=== PATIENT | female | born 1970 | race Caucasian/White ===

== ENCOUNTER → 2017-04-26 15:54 | Outpatient (CLI) | payer OTHER, SELFPAY ==
--- NOTE | 2017-04-26 15:57 | HPBI_ITS ---
MAMMOGRAPHY - BILATERAL SCREENING REASON FOR EXAM: Female, 46 years old. Routine annual screening examination. PERTINENT HISTORY: Non-contributory. TECHNIQUE: Digital bilateral breast stacy (3D mammographic acquisition) in the CC and MLO projections. 2-D mediolateral oblique (MLO) and craniocaudad (CC) views of both breasts were obtained. CAD: Full Field Digital Mammography with Computer Added Detection was performed. COMPARISON: Comparison is made with prior study dated March 30, 2016 and March 20, 2013. FINDINGS: Breast Composition: The breasts are heterogeneously dense, which may obscure small masses. There are no dominant masses or suspicious calcifications. No other significant abnormalities are identified. There has been no significant change since the prior study. HPBI/SCREENING MAMM (CAD), BILAT IMPRESSION: Stable bilateral screening mammogram. Yearly follow-up mammogram recommended. (A) ASSESSMENT CATEGORY: BIRADS Category 1: Negative. A letter regarding these results will be sent to the patient by the facility within 30 days. Approximately 10% of breast cancers are not detected by mammography. A normal mammogram should not delay biopsy of a clinically suspicious abnormality. [id number] Electronically Signed: Nir Wynn MD at 8:01 EST Tel [phone], Service support ,
== END ==
PROVIDERS: Family Provider Internal Medicine; PCP Internal Medicine; Visit Provider Internal Medicine
DX: Z12.31 Encounter for screening mammogram for malignant neoplasm of breast (principal)
CPT/HCPCS: 77063; 77067

== ENCOUNTER → 2017-07-06 07:24 | Outpatient (CLI) | payer OTHER, SELFPAY ==
[2017-07-06 10:48] LABS: Cholesterol 169 mg/dL (200); Glucose 66 mg/dL (74-106); High Density Lipoprotein 51 mg/dL; Triglycerides 160 mg/dL; Very Low Density Lipoprotein 32 mg/dL (5-40)
== END ==
PROVIDERS: Family Provider Internal Medicine; PCP Internal Medicine; Visit Provider Internal Medicine
DX: Z00.00 Encounter for general adult medical examination without abnormal findings (principal)
CPT/HCPCS: 36415; 80061; 82947

== ENCOUNTER → 2017-08-21 14:47 | Outpatient (CLI) | payer OTHER, SELFPAY ==
--- NOTE | 2017-08-21 14:50 | RAD_ITS ---
STUDY: X-RAY - LEFT FOOT CLINICAL: Female, 47 years old. Swelling and bruising of the great toe. TECHNIQUE: 3 view(s) of the foot. COMPARISON: None. FINDINGS: Normal talus, calcaneus, and tarsal bones. Normal visualized subtalar, talonavicular, calcaneocuboid, tarsal and tarsometatarsal articulations. Normal metatarsi. Normal metatarsophalangeal joint of the great toe. Normal tibial and fibular sesamoid bones. Normal interphalangeal joint of the great toe. Normal phalanges of the great toe. Normal second through fifth metatarsophalangeal joints. Normal interphalangeal joints and phalanges of the lesser toes. Soft tissue swelling. RAD/Foot min 3 Views IMPRESSION: Soft tissue swelling. Electronically Signed: Nir Wynn MD at 15:14 EDT Tel [phone], Service support ,
== END ==
PROVIDERS: Family Provider Internal Medicine; PCP Internal Medicine; Visit Provider Nurse Practitioner Gerontology
DX: S99.922A Unspecified injury of left foot, initial encounter (principal)
CPT/HCPCS: 73630

== ENCOUNTER → 2017-09-07 16:06 | Outpatient (CLI) | payer OTHER, SELFPAY ==
--- NOTE | 2017-09-07 16:10 | MRI_ITS ---
STUDY: MRI BRAIN WITH AND WITHOUT CONTRAST REASON FOR EXAM: Female, 47 years old. Multiple sclerosis reevaluation TECHNIQUE: Standardized multiplanar fat and water weighted pulse sequences were obtained. 8 ml of Gadavist contrast material was administered intravenously for the contrast portion of the examination. COMPARISON: August 21, 2016. FINDINGS: Normal size of the ventricles and extra-axial spaces for the patient's age. Fairly extensive periventricular white matter disease is noted with involvement of the corpus callosum consistent with clinical history of multiple sclerosis. No enhancing plaques to suggest acute demyelination Normal bilateral basal ganglia. Normal thalami. There is no extra-axial fluid accumulation. Normal flow voids within the major intracranial circulation suggesting patency by spin echo criteria. Normal venous enhancement. There is no enhancing intra-axial or extra-axial abnormality. Normal sella turcica, pituitary gland, infundibular stalk, optic chiasm and hypothalamus. Normal tectal plate and pineal gland. Normal midbrain, jacques and medulla. Normal cerebellum. Normal basal cisterns. Normal bilateral temporal bones. Normal bilateral internal auditory canals. No demonstrated orbital abnormality, within the constraints of a routine brain study. Minor mucosal thickening of the ethmoid air cells.. Normal calvarium and skull base. Normal visualized soft tissue structures. Normal visualized upper cervical spine. The degree of brain involvement is not changed appreciably since prior study. MRI/Brain W/WO Contrast IMPRESSION: Findings consistent with known multiple sclerosis which is stable since previous study. No enhancing plaque to suggest acute demyelination. Electronically Signed: Darío Elizabeth MD at 17:51 EDT , Service support ,
== END ==
PROVIDERS: Family Provider Internal Medicine; PCP Internal Medicine; Visit Provider Psychiatry & Neurology Neurology
DX: G35 Multiple sclerosis (principal)
CPT/HCPCS: 70553; A9585

== ENCOUNTER → 2017-09-14 09:36 | Outpatient (CLI) | payer OTHER, SELFPAY ==
[2017-09-15 09:24] LABS: Hepatitis B Core AB IgM Negative (Negative)
== END ==
PROVIDERS: Family Provider Internal Medicine; PCP Internal Medicine; Visit Provider Psychiatry & Neurology Neurology
DX: G35 Multiple sclerosis (principal); K75.9 Inflammatory liver disease, unspecified
CPT/HCPCS: 36415; 86705

== ENCOUNTER 2018-01-15 16:30 | Outpatient (RCR) | payer OTHER, SELFPAY ==
--- NOTE | 2017-11-26 13:19 | HP.PTEVAL ---
Patient's Visit Information VIN YUAN is a 47 year old F referred to Physical Therapy by SHIRIN Marti with a diagnosis of progressive msucle spams and back pain. Date of Evaluation: 10/24/17 Physical Therapist: Elia Rosas - Visit Plan Frequency: 2x /Week Duration: 4-6 Weeks Plan: Start with DN/manual interventions to T spine and UT region. Add in stretching and postural exercises as tolerated to incraesed posutral awearness. - Subjective Subjective: Pt. is here today for her initial evaluation with diagnosis of progressive msucle spams and back pain. Pt. reports having increasd symptoms for years and has been slowly getting worse. Pt. reports no N/T in either LE/UE. PT. reports having mid back pain, low back pain and cervical spine symptoms at times. Pt. repots trying massage and chiro without results. Pt. reports not trialing PT previously. Pt. reports physician recommended dry needling. Pt. reports having 3/10 pain constantly that worsens to 8/10 at times. Pt. repors being independent with all ADls, but has icnreased pain at work and home chores. Pt. reports not trying an exercises previously. Normal xrays. Pt. is hopeful to reduce symptoms in order to icnrease tolerance to all fucntional and work activities. - Pain low back Pain Intensity (Out of 10): 3 Pain Intensity Range: 2, 6 thoracic spine Pain Intensity (Out of 10): 2 Pain Intensity Range: 2, 6 cervical spine Pain Intensity (Out of 10): 3 Pain Intensity Range: 2, 6 - Objective POSTURE: FH, rounded shoulders, reduced lumbar lordosis. Pt. has normal iliac creast and shoulder heights. No shift noted. PALPATION: Pt. has increased tendernss with palaption of B UT, B levator scap and mid trap. Pt. did have some pain at low back as well all in erector spine. Pt. has no angel with spring testing throughout. NEURO: all intact. ROM: Pt. has tightness noted with cervical rotation and ext, tightness with thoracic ext and tight chest. Pt. has normal lumbar ROM. MMT: Pt. has normal MMT testing throughout bilateral UE and LEs. Core strengt- poor. Poor postural endurance in sitting. Maintains decent posture for ~2 minutes, regresses aftwards. GAIT: Pt. has sight lateral hip translation in gait, no increase in symptoms with gait. STAIRS: Normal without increase in symptoms. - Special Tests C/S Radiculapathy - Left Upper limb tension test: Negative C/S Radiculapathy - Right Upper limb tension test: Negative C/S Radiculapathy - Left Spurlings: Negative C/S Radiculapathy - Right Spurlings: Negative C/S Radiculapathy - Left Cervical distraction: Negative C/S Radiculapathy - Right Cervical distraction: Negative C/S Radiculapathy - Left Relief test: Negative C/S Radiculapathy - Right Relief test: Negative Cervical Sitting: Protrusion - Mechanical Response: No effect Cervical Sitting: Protrusion - Symptoms During Testing: No effect Cervical Sitting: Protrusion - Symptoms After Testing: No effect Cervical Sitting: Retraction - Mechanical Response: No effect Cervical Sitting: Retraction - Symptoms During Testing: No effect Cervical Sitting: Retraction - Symptoms After Testing: No effect Cervical Sitting: Retraction-Extension - Mechanical Response: No effect Cerv Sitting: Retraction-Extension - Symptoms During Testing: No effect Cerv Sitting: Retraction-Extension - Symptoms After Testing: No effect Cervical Sitting: Sidebend Right - Mechanical Response: No effect Cervical Sitting: Sidebend Right - Symptoms During Testing: No effect Cervical Sitting: Sidebend Right - Symptoms After Testing: No effect Cervical Sitting: Sidebend Left - Mechanical Response: No effect Cervical Sitting: Sidebend Left - Symptoms During Testing: No effect Cervical Sitting: Sidebend Left - Symptoms After Testing: No effect Cervical Sitting: Rotation Right - Mechanical Response: No effect Cervical Sitting: Rotation Right - Symptoms During Testing: No effect Cervical Sitting: Rotation Right - Symptoms After Testing: No effect Cervical Sitting: Rotation Left - Mechanical Response: No effect Cervical Sitting: Rotation Left - Symptoms During Testing: No effect Cervical Sitting: Rotation Left - Symptoms After Testing: No effect Cervical Sitting: Flexion - Mechanical Response: No effect Cervical Sitting: Flexion - Symptoms During Testing: No effect Cervical Sitting: Flexion - Symptoms After Testing: No effect L/S Slump test left side: Negative L/S Slump test right side: Negative L/S Left Straight Leg Raise: Negative L/S Right Straight Leg Raise: Negative - Goals Goal 1:: Pt. to be I with HEP. Goal Time Frame: 4-6 Weeks Goal 2:: Pt. to complete all work and recreational activities with 0-2/10 pain throughout thoracic spine and neck. Goal Time Frame: 4-6 Weeks Goal 3:: Pt. to sleep throughout the night without increase in symptoms. Goal Time Frame: 4-6 Weeks Goal 4:: Pt. to demonstrate improved posture throughout PT session indicating increased postural awareness. - Rehabilitation Potential Physical Therapy Diagnosis: Pt. has signs and symptoms of muscle spasming throughout spine, but worse in mid back and UT regions. Pt. has no radiating symptoms and no signs of disc like symptoms. Pt. does present with poor posture and would benefit from exercises to improve and DN to reduce symptoms. Rehabilitation Potential: Excellent - Anticipated Interventions Patient/Client Instruction: Educate patient on: Condition, Plan of Care, Risk Factors, Benefits of Fitness Program For the Purpose of:: To facilitate caregiver knowledge, To improve self management, To prevent re-injury, To improve ability to perform tasks related to life management, To improve tolerance to ADL's Therapeutic Exercise to Include: Strength training, Power training, Postural training, Flexibilty training, Passive ROM, Active ROM, Dynamic Lumbar Stabilization, Reinaldo Exercises, Scapular Strength/Stabilization For the Purpose of:: To decrease pain, To increase ROM, To improve nutrient delivery to tissue, To increase oxygenation perfusion, To improve muscle performance and motor function, To improve ability to perform ADL's, To increase tolerance to activity/condition/position, To improve health of tissue, To decrease soft tissue restriction, To increase flexibility/ROM Manual Therapy Techniques to Include: Trigger point massage, Mobilization, Manipulation, Functional dry needling, Soft tissue mobilization For the Purpose of:: To decrease pain, To increase ROM, To improve nutrient delivery to tissue, To increase oxygenation perfusion, To improve muscle performance and motor function, To improve health of tissue, To decrease soft tissue restriction Thank you for the opportunity to evaluate your patient. For Medicare and Medicare HMO plans, please review the plan of care and approve it. It will need to be FAXED BACK to us at [phone] for Medicare purposes. Please let me know if there are questions or concerns regarding this plan of care. Physician Signature: Date:
--- NOTE | 2018-02-13 09:27 | HP.PTDCSUM ---
HP - PT D/C Summary It has been my pleasure to treat VIN YUAN under orders from WILL MartiC, for the diagnosis of progressive msucle spams and back pain for a total of 6 visit(s). Discharge Date: Please see the following information for a summary of their discharge status. - Subjective Subjective: Pt. reports I am doing great today. Pt. reports no issues, but wanted to re assess this date. - Pain low back Pain Intensity (Out of 10): 1 thoracic spine Pain Intensity (Out of 10): 0 cervical spine Pain Intensity (Out of 10): 0 - Overall Improvement % Improvement: 85 - Objective Objective/Function: Pt. reports she is now having minimal pain and has changed her desk at work, which has improved. Pt. reports beign compliant and I with her exercises at home. Pt. will be DC from PT at this point in time. Pt has improved posture, she is sleeping throughout the night as well. Pt. educatd in neutral spine core stability exercises which she is independelt completing. - Goals Goal 1:: Pt. to be I with HEP. Goal Progress: Goal Met Goal 2:: Pt. to complete all work and recreational activities with 0-2/10 pain throughout thoracic spine and neck. Goal Progress: Goal Met Goal 3:: Pt. to sleep throughout the night without increase in symptoms. Goal Progress: Goal Met Goal 4:: Pt. to demonstrate improved posture throughout PT session indicating increased postural awareness. Goal Progress: Goal Met - Plan Plan: Pt. to be DC from PT at this point in time. - D/C Information If there are questions or concerns regarding this patient's physical therapy, please feel free to call me at [phone]. Thank you for the referral of this patient. Sincerely, Elia Rosas DPT
== END 2018-01-15 19:00 | disposition home or self-care (01) ==
LOC: PT 16:30
PROVIDERS: Family Provider Internal Medicine; PCP Psychiatry & Neurology Neurology; Visit Provider Nurse Practitioner Gerontology
DX: M54.9 Dorsalgia, unspecified (principal); G25.82 Stiff-man syndrome
CPT/HCPCS: 97140; 97162

== ENCOUNTER → 2018-04-08 11:32 | Outpatient (CLI) | payer OTHER, SELFPAY ==
--- NOTE | 2018-04-08 11:36 | CT_ITS ---
STUDY: CT BRAIN WITHOUT CONTRAST REASON FOR EXAM: Female, 47 years old. Add injury due to a fall. History of multiple sclerosis. RADIATION DOSAGE (If Supplied By Facility): CTDIvol = ( 44.99 ) mGy, DLP = ( 762.36 ) mGycm TECHNIQUE: Transaxial CT imaging of the brain was performed without administration of intravenous contrast material. Individualized dose optimization techniques were used for this CT. COMPARISON: None. FINDINGS: Normal soft tissue structures. Normal calvarium. Normal size ventricles and extra-axial spaces for the patient's age. There is evidence of decreased attenuation in the white matter surrounding the ventricles bilaterally. This is suggestive of patient's known diagnosis of multiple sclerosis. Normal basal ganglia and thalami. Normal brainstem. Normal cerebellum. There is no intracranial hemorrhage. There are no findings of an acute ischemic infarction. Normal visualized paranasal sinuses. CT/Brain/Head without Contrast IMPRESSION: Decreased periventricular white matter attenuation in keeping with the patient's history of multiple sclerosis. Electronically Signed: Nir Wynn MD at 12:25 EST , Service support ,
== END ==
LOC: CT 11:34
PROVIDERS: Family Provider Internal Medicine; PCP Internal Medicine; Referring Provider Nurse Practitioner Gerontology; Visit Provider Nurse Practitioner Gerontology
DX: S09.90XA Unspecified injury of head, initial encounter (principal)
CPT/HCPCS: 70450

== ENCOUNTER → 2018-08-29 09:52 | Outpatient (CLI) | payer OTHER, SELFPAY ==
--- NOTE | 2018-08-29 09:55 | BI_ITS ---
MAMMOGRAPHY - BILATERAL SCREENING REASON FOR EXAM: Female, 48 years old. Routine annual screening examination. PERTINENT HISTORY: Non-contributory. TECHNIQUE: Digital bilateral breast jen (3D mammographic acquisition) in the CC and MLO projections. 2-D mediolateral oblique (MLO) and craniocaudad (CC) views of both breasts were obtained. CAD: Full Field Digital Mammography with Computer Added Detection was performed. COMPARISON: Comparison is made with prior examination dated April 26, 2017 and March 30, 2016 FINDINGS: Breast Composition: The breasts are heterogeneously dense, which may obscure small masses. There are no dominant masses or suspicious calcifications. No other significant abnormalities are identified. There has been no significant change since the prior study. BI/SCREEN MAMM (CAD) W/JEN BILAT IMPRESSION: Stable bilateral screening mammogram. Yearly follow-up mammogram recommended. (A) ASSESSMENT CATEGORY: BIRADS Category 1: Negative. A letter regarding these results will be sent to the patient by the facility within 30 days. Approximately 10% of breast cancers are not detected by mammography. A normal mammogram should not delay biopsy of a clinically suspicious abnormality. [id number] Electronically Signed: Nir Wynn, at 11:19 EDT , Service support ,
== END ==
LOC: OPBI 09:52 → PAVLAB 10:35
PROVIDERS: Family Provider Internal Medicine; PCP Internal Medicine; Referring Provider Obstetrics & Gynecology; Visit Provider Obstetrics & Gynecology
DX: Z12.31 Encounter for screening mammogram for malignant neoplasm of breast (principal)
CPT/HCPCS: 77063; 77067

== ENCOUNTER → 2019-01-04 | Outpatient (CLI) | payer OTHER, SELFPAY ==
[2019-01-04 09:18] LABS: Absolute Lymphocyte Count 1.45 X10^3/uL (0.83-4.51); Absolute Neutrophil Count 7.1 X10^3/uL (2.0-7.7); Basophil# 0.07 X10^3/uL; Basophil% 0.7 % (0-1); Eosinophil# 0.21 X10^3/uL; Eosinophils% 2.2 % (0-5); Hematocrit 41.2 % (37-47); Hemoglobin 13.3 g/dL (12.0-15.0); Lymphocyte # 1.45 X10^3/ul (4.0); Mean Corp Hgb Conc 32.3 g/dL (32-36); Mean Corpuscular Hgb 28.9 pg (27.0-32.0); Mean Corpuscular Volume 89.6 fL (81-99); Mean Platelet Vol. 9.4 fl (6.2-12.0); Monocyte# 0.76 X10^3/uL; Monocyte% 7.9 % (0-10); NRBC Flagged by Analyzer 0 % (0-5); Neutrophil # 7.13 X10^3/uL (2.7-7.7); Neutrophil % 73.9 % (47-70); Platelet Count 311 K/mm3 (150-450); RBC Distribution Width CV 12.8 % (11.6-14.6); RBC Distribution Width SD 41.7 fl (35.1-43.9); White Blood Count 9.7 K/mm3 (4.4-11.0)
[2019-01-04 09:51] LABS: AST(SGOT) 14 U/L (15-37); Alanine Aminotransfer ALT/SGPT 16 U/L (13-56); Albumin, Serum 3.4 g/dL (3.2-5.0); Alkaline Phosphatase 132 U/L (45-117); Bilirubin, Direct 0.13 mg/dL (0.00-0.30); Cholesterol 195 mg/dL (200); Globulin 4.3 g/dL (2.2-4.2); Glucose 89 mg/dL (74-106); High Density Lipoprotein 69 mg/dL; Protein, Total 7.7 g/dL (6.4-8.2); Triglycerides 67 mg/dL; Very Low Density Lipoprotein 13 mg/dL (5-40)
== END | disposition home or self-care (01) ==
LOC: LAB 08:58
PROVIDERS: Family Provider Internal Medicine; PCP Internal Medicine; Referring Provider Internal Medicine; Visit Provider Internal Medicine
DX: Z00.00 Encounter for general adult medical examination without abnormal findings (principal); G35 Multiple sclerosis
CPT/HCPCS: 36415; 80061; 80076; 82947; 85025

== ENCOUNTER → 2019-06-26 12:42 | Outpatient (CLI) | payer OTHER, SELFPAY ==
--- NOTE | 2019-06-26 12:46 | BI_ITS ---
MAMMOGRAPHY - BILATERAL SCREENING REASON FOR EXAM: Female, 48 years old. Routine annual screening examination. PERTINENT HISTORY: Non-contributory. TECHNIQUE: Digital bilateral breast jen (3D mammographic acquisition) in the CC and MLO projections. 2-D mediolateral oblique (MLO) and craniocaudad (CC) views of both breasts were obtained. CAD: Full Field Digital Mammography with Computer Added Detection was performed. COMPARISON: Comparison is made with prior study dated August 29, 2018 and April 26, 2017. FINDINGS: Breast Composition: The breasts are heterogeneously dense, which may obscure small masses. There are no dominant masses or suspicious calcifications. No other significant abnormalities are identified. There has been no significant change since the prior study. BI/SCREEN MAMM (CAD) W/JEN BILAT IMPRESSION: Stable bilateral screening mammogram. Yearly follow-up mammogram recommended. (A) ASSESSMENT CATEGORY: BIRADS Category 1: Negative. A letter regarding these results will be sent to the patient by the facility within 30 days. Approximately 10% of breast cancers are not detected by mammography. A normal mammogram should not delay biopsy of a clinically suspicious abnormality. [id number] Electronically Signed: Nir Wynn, at 14:05 EDT , Service support ,
== END ==
PROVIDERS: PCP Internal Medicine; Referring Provider Obstetrics & Gynecology; Visit Provider Obstetrics & Gynecology
DX: Z12.31 Encounter for screening mammogram for malignant neoplasm of breast (principal)
CPT/HCPCS: 77063; 77067

== ENCOUNTER 2020-12-20 01:51 | Emergency (ER) | payer OTHER, SELFPAY ==
[2020-12-20 01:51] VITALS: BP 181/81; PULSE 135; RESP 18; TEMP 37.7; O2SAT 97; BMI 34.9
[2020-12-20 02:45] LABS: Absolute Lymphocyte Count 1.21 X10^3/uL (0.83-4.51); Absolute Neutrophil Count 12.8 X10^3/uL (2.0-7.7); Basophil# 0.11 X10^3/uL; Basophil% 0.7 % (0-1); Eosinophil# 0.12 X10^3/uL; Eosinophils% 0.7 % (0-5); Hematocrit 39.8 % (37-47); Hemoglobin 13.4 g/dL (12.0-15.0); Lymphocyte # 1.21 X10^3/ul (0.83-4.51); Lymphocyte % 7.3 % (19-41); Mean Corp Hgb Conc 33.7 g/dL (32-36); Mean Corpuscular Hgb 30.1 pg (27.0-32.0); Mean Corpuscular Volume 89.4 fL (81-99); Mean Platelet Vol. 9.6 fl (6.2-12.0); Monocyte# 2.14 X10^3/uL; Monocyte% 12.9 % (0-10); NRBC Flagged by Analyzer 0 % (0-5); Neutrophil # 12.83 X10^3/uL (2.7-7.7); Neutrophil % 77.7 % (47-70); POSITIVE DIFFERENTIAL YES; Platelet Count 409 K/mm3 (150-450); RBC Distribution Width CV 12.3 % (11.6-14.6); RBC Distribution Width SD 40.4 fl (35.1-43.9); Red Blood Count 4.45 M/mm3 (4.2-5.4); White Blood Count 16.5 K/mm3 (4.4-11.0)
--- NOTE | 2020-12-20 02:47 | CT_ITS ---
EXAM: CT ABDOMEN AND PELVIS WITH INTRAVENOUS CONTRAST : 1970 CLINICAL INDICATION: Abdominal pain -- IV PO Contrast TECHNIQUE: Helically acquired images were obtained of the abdomen and pelvis with intravenous contrast. This CT exam was performed using one or more of the following dose reduction techniques: automated exposure control, adjustment of the mA and/or kV according to patient size, and/or use of iterative reconstruction technique. This report was created using [employer] report generation technology. CONTRAST: Oral Tamp; IV Gastrografin Tamp; 100mL [id number] COMPARISON: None. FINDINGS: LOWER THORAX: Bibasilar atelectasis. No cardiomegaly. No significant pericardial effusion. ABDOMEN: LIVER: Unremarkable. Homogeneous. No focal mass. GALLBLADDER AND BILE DUCTS: Unremarkable. No calcified gallstones. No gallbladder distention or wall edema. No intra- or extrahepatic biliary ductal dilation. PANCREAS: Unremarkable. No focal cystic or solid mass. SPLEEN: Unremarkable. Normal size without focal cystic or solid mass. ADRENALS: Unremarkable. No nodules. KIDNEYS AND URETERS: Mild left hydroureter and hydronephrosis. Small nonobstructing stone in the lower pole of the left kidney. STOMACH AND BOWEL: Mild diffuse wall thickening of the descending and sigmoid colon. No stomach or bowel distention. PELVIS: APPENDIX: No evidence of acute appendicitis. BLADDER: Unremarkable. REPRODUCTIVE: Hysterectomy. ABDOMEN and PELVIS: INTRAPERITONEAL SPACE: Unremarkable. No ascites or other fluid collection. No free air. BONES/JOINTS: Degenerative changes of the spine. No suspicious lytic or blastic abnormality. SOFT TISSUES: Unremarkable. No discrete abdominal or pelvic wall hernia. VASCULATURE: Unremarkable. Abdominal aorta is non-dilated. LYMPH NODES: Unremarkable. No enlarged lymph nodes. CT/Abdomen/Pelvis WITH Contrast IMPRESSION: 1. Mild diffuse wall thickening of the descending and sigmoid colon. This may indicate infectious or inflammatory colitis. 2. Mild left hydroureter and hydronephrosis. This could be reactive to the inflammatory changes in the colon, but could also be secondary to a recently passed nonvisualized stone, or urinary tract infection. Individualized dose optimization techniques were used for this CT. at 0454 Reported and signed by: Joss Eddy MD Electronically Signed: Joss Eddy MD at 4:53 EDT Tel , Service support ,
[2020-12-20 02:55] LABS: Differential Indicated SCAN CRITERIA MET
[2020-12-20 02:59] LABS: ALB/GLOB Ratio 0.6 RATIO (0.9-2.4); AST(SGOT) 43 U/L (15-37); Alanine Aminotransfer ALT/SGPT 62 U/L (13-56); Alkaline Phosphatase 208 U/L (45-117); Anion Gap 9 (5-15); BUN 9 mg/dL (7-18); BUN/Creat Ratio 11.3 RATIO (10-20); Calcium,Total 9.6 mg/dL (8.5-10.1); Chloride 104 mmol/L (98-107); EST Glomerular Filtration Rate 80 mL/min (>60); Est Glom Filt Rate - Afr Amer 97 mL/min (>60); Estimated Creatinine Clearance 71.84 ml/min; Globulin 4.8 g/dL (2.2-4.2); Glucose 187 mg/dL (74-106); Potassium 3.9 mmol/L (3.5-5.1); Protein, Total 7.8 g/dL (6.4-8.2); Sodium Level 135 mmol/L (136-145)
[2020-12-20] MEDS: 0.9% Normal Saline 1,000 ML 1000 ML IV (03:04)
[2020-12-20] MEDS: Ondansetron 4 MG/2 ML Vial IV (03:04)
[2020-12-20 03:11] LABS: Lipase 68 U/L (73-393)
--- NOTE | 2020-12-20 03:26 | ED.VIS.GI ---
HPI HPI - GI History of Present Illness Chief Complaint: GI Bleed Informant: patient Abdominal Pain/Flank Pain Onset: Days (5) Context: Gradual Onset Timing: Intermittent Quality: Cramping Location: RLQ and LLQ Worsened by: Nothing Relieved by: Nothing Nausea/Vomiting/Emesis GI Symptom: Negative for Nausea and Vomiting Diarrhea/Melena/Hematochezia GI Symptom: Positive for Hematochezia Associated Symptoms Associated Symptoms: Negative for Dysuria, Frequency and Hematuria Narrative Narrative: Patient presents with hematochezia that has been intermittent over the last 5 days. Patient states it is gotten worse today. Patient states she has cramping in her lower abdomen. Patient states this comes on prior to having a bowel movement. Patient states that her bowel movements have been bloody recently. Patient denies any melena. Patient states nothing makes her pain better or worse. Patient denies any dysuria or hematuria. Patient denies any nausea or vomiting. Patient states her pain radiates into her back. PFSH PFS Medical History (Updated 12/20/20 @ 07:[address] Paul Wang, DO) Depression Multiple sclerosis Home Medications Rebif 1 injectable SUBCUT UD 01/07/16 [History Last Taken Unknown] gabapentin 1,600 mg PO QHS 01/07/16 [History Last Taken Unknown] docusate sodium [Colace] 100 mg PO BID PRN PRN #60 capsule 01/10/16 [Rx Last Taken Unknown] oxycodone 5 - 10 mg PO Q4H PRN PRN #20 tablet 01/10/16 [Rx Last Taken Unknown] amitriptyline 50 mg PO DAILY 12/20/20 [History Last Taken Unknown] ciprofloxacin HCl 500 mg PO BID #14 tablet 12/20/20 [Rx Last Taken Unknown] escitalopram oxalate 10 mg PO DAILY 12/20/20 [History Last Taken Unknown] metronidazole 500 mg PO Q6H #28 tab 12/20/20 [Rx Last Taken Unknown] oxybutynin chloride 10 mg PO DAILY 12/20/20 [History Last Taken Unknown] Allergy/AdvReac Type Severity Reaction Status Date / Time bupropion [From Wellbutrin] Allergy Other Verified 12/20/20 01:54 Penicillins [PCN] Allergy Other Verified 12/20/20 01:54 aspirin AdvReac Upset Verified 12/20/20 01:54 Stomach Surgical History (Updated 12/20/20 @ 03:[address] Paul Wang, DO) History of hysterectomy Social History Smoking Status: Never smoker ROS ROS ED Constitutional Constitutional ED: Reports fever(s) and subjective Eyes Eyes: Denies blurry vision or change in vision ENT ENT ED: Denies rhinorrhea or sore throat Cardiovascular Cardiovascular: Denies chest pain or palpitations Respiratory/Chest Respiratory/Chest: Denies cough or dyspnea Gastrointestinal Gastrointestinal: Reports abdominal pain; Denies nausea or vomiting Genitourinary Genitourinary ED: Denies dysuria or hematuria Musculoskeletal Musculoskeletal: Reports back pain; Denies neck pain Integumentary Denies abscess or rash Neurologic Neurologic: Denies headache(s) or weakness Allergic/Immunologic Allergic/Immunologic ED: Denies mouth swelling or urticaria EXAM Physical Exam Const Vital Signs: 12/20/20 01:51 12/20/20 06:37 Temperature 99.8 F H Temperature Source Oral Pulse Rate 135 H 109 H Respiratory Rate 18 20 H Blood Pressure 181/81 H 130/77 H Blood Pressure Mean 114 94 Pulse Ox 97 98 Oxygen Delivery Method Room Air Positive well nourished and well developed General Appearance ED: well developed HEENT Reports moist mucous membranes Neck supple and no JVD Resp normal respiratory effort and clear to auscultation bilaterally Cardio regular rhythm and no murmurs Rate: tachycardic GI normal to inspection, nondistended, normoactive bowel sounds Palpation: soft and tender LLQ, RLQ and suprapubic; Negative for guarding or rebound tenderness present Extremity normal to inspection General Extremety ED: Negative for edema or tenderness General Extremity: Negative for edema Neuro oriented x3, CN's II-XII intact bilaterally and no sensory deficits noted Sensorium / Orientation: alert Motor Exam: strength 5/5 throughout Psych mental status grossly normal Skin no rashes or lesions noted MDM MDM MDM Narrative Medical decision making narrative: CBC shows a mild leukocytosis of 16.5. Hemoglobin and hematocrit are normal. Comprehensive metabolic profile showed slightly elevated alk phos of 208, ALT of 62, and AST of 43. Lactate was slightly elevated 2.1. Lipase was normal. Patient was given IV fluids. Patient was given morphine and Zofran. CT scan of the abdomen and pelvis was obtained. There is colitis of the descending and sigmoid colon. Patient was given prescriptions for Cipro and Flagyl. Patient was instructed to drink plenty of fluids. Patient was instructed to advance her diet as tolerated. Patient was instructed to follow-up with her primary care physician in 3 to 5 days. Patient understood and was agreeable with the plan. All questions were answered. Lab Data Attestation: I reviewed the patient's lab results. Labs: Laboratory Results - last 24 hr 12/20/20 12/20/20 12/20/20 02:00 02:00 02:00 WBC 16.5 H RBC 4.45 Hgb 13.4 Hct 39.8 MCV 89.4 MCH 30.1 MCHC 33.7 RDW Std Deviation 40.4 RDW Coeff of Sejal 12.3 Plt Count 409 MPV 9.6 Immature Gran % (Auto) 0.700 Neut % (Auto) 77.7 H Lymph % (Auto) 7.3 L [place] % (Auto) 12.9 H Eos % (Auto) 0.7 Baso % (Auto) 0.7 Absolute Neuts (auto) 12.8 H Absolute Lymphs (auto) 1.21 Nucleated RBC % 0 [address] Review May foll Sodium 135 L Potassium 3.9 Chloride 104 Carbon Dioxide 22.0 Anion Gap 9 BUN 9 Creatinine 0.80 Estim Creat Clear Calc 71.84 Est GFR (MDRD) Af Amer 97 Est GFR (MDRD) Non-Af 80 BUN/Creatinine Ratio 11.3 Glucose 187 H Lactic Acid 2.1 H* Calcium 9.6 Total Bilirubin 0.40 AST 43 H ALT 62 H Alkaline Phosphatase 208 H Total Protein 7.8 Albumin 3.0 L Globulin 4.8 H Albumin/Globulin Ratio 0.6 L Lipase 12/20/20 02:00 WBC RBC Hgb Hct MCV MCH MCHC RDW Std Deviation RDW Coeff of Sejal Plt Count MPV Immature Gran % (Auto) Neut % (Auto) Lymph % (Auto) [place] % (Auto) Eos % (Auto) Baso % (Auto) Absolute Neuts (auto) Absolute Lymphs (auto) Nucleated RBC % Diff Path Review Sodium Potassium Chloride Carbon Dioxide Anion Gap BUN Creatinine Estim Creat Clear Calc Est GFR (MDRD) Af Amer Est GFR (MDRD) Non-Af BUN/Creatinine Ratio Glucose Lactic Acid Calcium Total Bilirubin AST ALT Alkaline Phosphatase Total Protein Albumin Globulin Albumin/Globulin Ratio Lipase 68 L Radiography Diagnostic Testing: Clinical Impression(s) from Imaging Studies Abdomen/Pelvis CT 12/20/20 02:47 IMPRESSION: 1. Mild diffuse wall thickening of the descending and sigmoid colon. This may indicate infectious or inflammatory colitis. 2. Mild left hydroureter and hydronephrosis. This could be reactive to the inflammatory changes in the colon, but could also be secondary to a recently passed nonvisualized stone, or urinary tract infection. Individualized dose optimization techniques were used for this CT. at 0454 Reported and signed by: Joss Eddy MD Electronically Signed: Joss Eddy MD at 4:53 EDT Tel , Service support , Discharge Plan Triage Chief Complaint: GI Bleed ED Provider: Paul Wang Dx/Rx/DC Orders Clinical Impression: Colitis Instructions: ED Understanding Colitis, ED Lower GI Bleeding (Stable) Prescriptions: New metronidazole [metronidazole] 500 MG tablet 500 mg PO Q6H Qty: 28 RF: 0 ciprofloxacin HCl [ciprofloxacin HCl] 500 MG tablet 500 mg PO BID Qty: 14 RF: 0 No Action gabapentin 400 MG capsule 1,600 mg PO QHS RF: 0 Rebif 1 injectable subcut UD RF: 0 oxycodone 5 MG tablet 5 - 10 mg PO Q4H PRN PRN (Reason: Mod-Severe Pain (4-10/10)) Qty: 20 RF: 0 docusate sodium [DOK] 100 MG capsule 100 mg PO BID PRN PRN (Reason: Constipation) Qty: 60 RF: 0 oxybutynin chloride 10 mg tablet extended release 24hr 10 mg PO DAILY RF: 0 amitriptyline 50 mg tablet 50 mg PO DAILY RF: 0 escitalopram oxalate 10 mg tablet 10 mg PO DAILY RF: 0 Primary Care Provider: Eun dAams Referrals: Eun Adams DO [Primary Care Provider] - Disposition Disposition: Home, Self Care
[2020-12-20 03:56] LABS: Lactic Acid 2.1 mmol/L (0.4-1.9)
[2020-12-20 06:32] LABS: Reflex Lactate? Y
[2020-12-20 06:37] VITALS: BP 130/77; PULSE 109; RESP 20; O2SAT 98
[2020-12-20] MEDS: Ciprofloxacin 500 MG Tablet PO (07:33)
[2020-12-20] MEDS: metroNIDAZOLE 500 MG Tablet PO (07:33)
[2020-12-20 13:37] LABS: Pathologist Review Reviewed
== END 2020-12-20 07:38 | disposition home or self-care (01) ==
PROVIDERS: Emergency Provider Emergency Medicine; PCP Internal Medicine
DX: K52.9 Noninfective gastroenteritis and colitis, unspecified (principal); G35 Multiple sclerosis; F32.9 Major depressive disorder, single episode, unspecified; Z79.899 Other long term (current) drug therapy
CPT/HCPCS: 74177; 80053; 83605; 83690; 85025; 96361; 96374; 96375; 99285; J7030; Q9967; A4216; J2405